=== PATIENT | female | born 1965 | race African-American/Black ===

== ENCOUNTER 2020-04-21 13:24 | Observation (INO) | payer OTHER ==
--- NOTE | 2020-04-21 13:52 | RAD ---
EXAM: Single view of the chest HISTORY: Chest pain COMPARISON: None FINDINGS: Single view of the chest shows a normal sized cardiomediastinal silhouette. There is no lauren dence of consolidation, mass, or pleural effusion. Degenerative changes are seen in the spine. IMPRESSION: No evidence of acute cardiopulmonary disease
[2020-04-21 15:28] LABS: Hemoglobin 16.9 g/dL (12.0-16.0); Mean Corpuscular HGB CONC 29.6 g/dL (32.0-36.0); Mean Corpuscular Hemoglobin 25.1 pg (27.0-31.0); Mean Platelet Volume 8.4 fL (7.4-10.4); Platelet Count 288 thou/uL (130-400); RBC Distribution Width 24.2 % (11.5-14.5); Red Blood Cell (RBC) Count 6.73 mill/uL (4.20-5.40)
[2020-04-21 15:47] LABS: Anisocytosis MODERATE=16-30 cells (100X) (0-5/hpf); Band 10 % (5-11); Hypochromia SLIGHT = 6-15 cells (100X) (0-5/hpf); Lymphocytes 14 % (21-51); MDiff Complete? YES; Monocytes 7 % (0-10); Neutrophil 55 % (42-75); Nucleated RBC 1 % (0); Platelet Morphology Comment Appears Adequate; Polychromasia MODERATE = 3-4 cells (100X) (0-2/hpf); Reactive Lymphocytes 14 % (0-10); Target Cells MODERATE= 6-15 cells (100X) (0-1/hpf); Tear Drops SLIGHT = 2-5 cells (100X) (0-1/hpf); White Blood Cell (WBC) Count 9.7 thou/uL (4.8-10.8)
[2020-04-21 15:53] LABS: ALT (SGPT) 13 U/L (8-55); AST (SGOT) 21 U/L (5-34); Albumin 4.2 g/dL (3.5-5.0); Alkaline Phosphatase 74 U/L (40-110); Anion Gap 14 mmol/L (10-20); BUN (Urea Nitrogen) 17 mg/dL (9.8-20.1); Bilirubin, Total 0.6 mg/dL (0.2-1.2); Calc. Creatinine Clearance 0 mL/min (70-130); Calcium 10.1 mg/dL (7.8-10.44); Carbon Dioxide 26 mmol/L (22-29); Chloride 101 mmol/L (98-107); Estimated GFR-MDRD 62; Globulin 3.7 g/dL (2.4-3.5); Glucose 90 mg/dL (70-105); Potassium 3.7 mmol/L (3.5-5.1); Protein, Total 7.9 g/dL (6.0-8.3); Sodium 137 mmol/L (136-145)
[2020-04-21] MEDS ORDERED: Aspirin Chewable 81 MG TAB ONE (17:28)
[2020-04-21] MEDS ORDERED: Nitroglycerin 0.4 MG TAB (25 Tab Bottle) PO PRN (21:29)
--- NOTE | 2020-04-21 21:50 | PDOC.HHP ---
Hospitalist HPI - History of Present Illness Chest heaviness and headache History of Present Illness: Patient presents to the ED today due to concerns over heaviness in her chest that she has felt intermittently since yesterday. She was resting when it started and she states she has issues with indigestion due to GERD but was unable to differentiate if the pain was due to that or heart related which prompted her to seek medical attention today as it has persisted on and off throughout the day. She denies any associated diaphoresis, or shortness of breath but has noted dyspnea on exertion which she has had for a long time but has significantly worsened in the last 3 weeks. Denies any cough or hemoptysis. Denies any abdominal pain, n/v. Denies any trauma, injury or heavy lifting. Complains of right hand pain which she has had for over a year. ED COURSE: EKG done in the ED showed a NSR, HR 71. No ST changes or T wave abnormalities. Initial troponin negative. CXR negative. Given aspirin 243 mg PO x 1 (she takes 81 mg Aspirin daily). BP initially elevated at 195/105, improved to 153/100. PAST MEDICAL HISTORY: 1. Prediabetic. 2. Hyperlipidemia. 3. Obesity. 4. Hypertension. 5. GERD. 6. Depression. PAST SURGICAL HISTORY: 1. x 4. 2. Bladder polyp removed. 3. Partial hysterectomy. 4. Cholecystectomy. 5. Colon polyp removed. SOCIAL HISTORY: Patient drinks socially, Patient denies drug use, Patient has no smoking history. FAMILY HISTORY: Noncontributory. ALLERGIES: Lisinopril. CURRENT MEDICATIONS: Pantoprazole: Strength - 40 mg PO daily. Carvedilol: Strength - 6.25 mg PO daily. BuPROPion HCl: Strength - 150 mg PO daily. Aspirin: Strength - 81 mg PO daily. Losartan-hydrochlorothiazide: Strength - 100 mg-25 mg, PO daily. HydrALAZINE: Strength - 50 mg PO daily. Colace: Strength - 50 mg PO daily. Fish Oil capsule PO daily. CloNIDine HCl: Strength - 0.1 mg PO. CloNIDine: Strength - 0.1 mg/24 hour : TRANSDERMAL - Exam General Appearance: NAD, awake alert Eye: PERRL, anicteric sclera ENT: normocephalic atraumatic, no oropharyngeal lesions Neck: supple, symmetric, no lymphadenopathy Heart: RRR, no murmur, no gallops, no rubs, normal peripheral pulses Heart - other findings: central chest wall discomfort on palpation Respiratory: CTAB, no wheezes, no rales, no ronchi, normal chest expansion Gastrointestinal: soft, non-tender, non-distended, normal bowel sounds, no guarding, no rigidity Extremities: no edema Skin: normal turgor, no lesions, no rashes Neurological: cranial nerve grossly intact, normal sensation to touch, no weakness Neurological - other findings: right hand discomfort over thenar eminence Musculoskeletal: normal tone, normal strength, no muscle wasting Psychiatric: normal affect, normal behavior, A&O x 3 Hospitalist Results - Labs Result Diagrams: 04/21/20 15:14 04/21/20 15:14 Lab results: WBC 9.7 thou/uL (4.8-10.8) 04/21/20 15:14 Hgb 16.9 g/dL (12.0-16.0) H 04/21/20 15:14 Hct 57.2 % (36.0-47.0) H 04/21/20 15:14 MCV 85.0 fL (78.0-98.0) 04/21/20 15:14 Plt Count 288 thou/uL (130-400) 04/21/20 15:14 Band Neuts % (Manual) 10 % (5-11) 04/21/20 15:14 Sodium 137 mmol/L (136-145) 04/21/20 15:14 Potassium 3.7 mmol/L (3.5-5.1) 04/21/20 15:14 Chloride 101 mmol/L (98-107) 04/21/20 15:14 Carbon Dioxide 26 mmol/L (22-29) 04/21/20 15:14 BUN 17 mg/dL (9.8-20.1) 04/21/20 15:14 Creatinine 1.11 mg/dL (0.6-1.1) H 04/21/20 15:14 Glucose 90 mg/dL (70-105) 04/21/20 15:14 Calcium 10.1 mg/dL (7.8-10.44) 04/21/20 15:14 Total Bilirubin 0.6 mg/dL (0.2-1.2) 04/21/20 15:14 AST 21 U/L (5-34) 04/21/20 15:14 ALT 13 U/L (8-55) 04/21/20 15:14 Alkaline Phosphatase 74 U/L (40-110) 04/21/20 15:14 Troponin I 0.023 ng/mL (< 0.028) 04/21/20 15:14 Serum Total Protein 7.9 g/dL (6.0-8.3) 04/21/20 15:14 Albumin 4.2 g/dL (3.5-5.0) 04/21/20 15:14 Hospitalist H&P A/P - Problem (1) Chest heaviness Code(s): R07.89 - OTHER CHEST PAIN Status: Acute (2) Dyspnea on exertion Code(s): R06.00 - DYSPNEA, UNSPECIFIED Status: Acute (3) Hypertensive urgency Code(s): I16.0 - HYPERTENSIVE URGENCY Status: Acute (4) Essential hypertension Code(s): I10 - ESSENTIAL (PRIMARY) HYPERTENSION Status: Chronic (5) Hyperlipidemia Code(s): E78.5 - HYPERLIPIDEMIA, UNSPECIFIED Status: Chronic (6) GERD (gastroesophageal reflux disease) Code(s): K21.9 - GASTRO-ESOPHAGEAL REFLUX DISEASE WITHOUT ESOPHAGITIS Status: Chronic (7) History of prediabetes Code(s): Z87.898 - PERSONAL HISTORY OF OTHER SPECIFIED CONDITIONS Status: Chronic (8) Obesity Code(s): E66.9 - OBESITY, UNSPECIFIED Status: Chronic - Plan Plan: Cardiac monitoring. Continue to trend troponins. Monitor BP. PRN antihypertensives ordered. Echo ordered. Stress test in AM. Lipid panel with AM labs. Check TSH, BNP, Mg+, D-Dimer and Hgb A1C (hx prediabetes). NPO after midnight. Resume pantoprazole which she takes at home. DVT Prophylaxis with mechanical SCDs. CODE STATUS FULL Surrogate decision makers: Her son Homer Hewitt.
[2020-04-21 22:13] LABS: Hemoglobin A1c 6.5 % (4.0-6.0)
[2020-04-21 23:40] VITALS: BMI 44.5
[2020-04-22 04:51] LABS: Cardiac Risk 5.3 (Less than 4.5)
[2020-04-22] MEDS ORDERED: hydrALAZINE 20 MG/ML VIAL SLOW IVP PRN (05:37)
[2020-04-22] MEDS ORDERED: Aspirin 325 mg Enteric Coated Tablet PO SCH (09:00)
--- NOTE | 2020-04-22 11:54 | NM ---
Radionucleotide stress only myocardial perfusion scan with CT attenuation correction and SPECT imagin g Left ventricular wall motion evaluation and ejection fraction HISTORY: Chest pain. FINDINGS: Adenosine protocol. There is homogeneous uptake of radiotracer throughout the left ventricu lar myocardium. No focal perfusion defect. QGS analysis of gated SPECT images shows no focal wall motion abnormalities. Ejection fraction calcul ated at greater than 81%. IMPRESSION : No evidence of ischemia. Normal LVEF.
[2020-04-22 14:28] LABS: SARS-CoV-2 MS2 Positive; SARS-CoV-2 N Gene Negative; SARS-CoV-2 S Gene Negative; SARS-CoV-2 by NAA Not Detected (NotDetected); SARS-CoV-2 orf1ab Negative
[2020-04-22 16:23] VITALS: BP 146/88; TEMP 98.2
--- NOTE | 2020-04-23 12:58 | DIS ---
DATE OF ADMISSION: 04/21/2020 DATE OF DISCHARGE: 04/22/2020 DISCHARGE DIAGNOSES: 1. Chest pain, likely musculoskeletal. 2. Dyspnea on exertion. 3. Hypertensive urgency. 4. Essential hypertension. 5. Hyperlipidemia. 6. Gastroesophageal reflux disease. 7. History of prediabetes. 8. Obesity. 9. Polycythemia vera. HISTORY OF PRESENT ILLNESS: The patient is a 55-year-old female, who presented to the emergency department reporting some chest discomfort in the parasternal area. This was described as generally intermittent. Her labs were notable for normal white count, hemoglobin of 16.9 with diffuse differential. Troponin was negative. EKG was nonischemic. Her GFR was 62, consistent with prior readings historically, consistent with chronic kidney disease stage 3. HOSPITAL COURSE: The patient was placed on observation on telemetry. She had serial cardiac isoenzymes, which were unremarkable. She underwent a nuclear medicine stress test, which revealed normal ejection fraction. No evidence of ischemia. Her echocardiogram revealed an EF of 55% to 60%, possibility of diastolic dysfunction. The patient's followup exam revealed tenderness in the parasternal area bilaterally. I discussed the situation with her at length. She does have a history of polycythemia vera and has seen a specialist for this. Right now, her treatment plan consist of intermittent phlebotomy when her hemoglobin goes above 18. I had a long discussion with her explaining the underlying diagnosis and the concerns for it, although I think it is completely unrelated to her more likely musculoskeletal chest pain that she is experiencing. PHYSICAL EXAMINATION: VITAL SIGNS: At the time of discharge, the patient's temperature is 98.2, pulse 56, respirations 14, O2 saturation 96% on room air, and blood pressure 146/88. GENERAL: She was awake and alert. HEART: Regular. LUNGS: Clear. ABDOMEN: Benign. EXTREMITIES: No edema. DISPOSITION: The patient is discharged to home. She is to continue her usual diet and activity level and will remain on her same medication regimen. She should follow up with her PCP within 1 week and she can return to the hospital at anytime she has the need to do so. Job ID: [id number]
== END 2020-04-22 17:20 | disposition home or self-care (01) ==
LOC: ERS 13:24 → ERHOLD 17:56 → 2NO 20:38
PROVIDERS: ADMIT Internal Medicine; ATTEND Internal Medicine
DX: R07.89 Other chest pain (principal); R06.00 Dyspnea, unspecified; I16.0 Hypertensive urgency; I10 Essential (primary) hypertension; E78.5 Hyperlipidemia, unspecified; K21.9 Gastro-esophageal reflux disease without esophagitis; R73.03 Prediabetes; D45 Polycythemia vera; F32.9 Major depressive disorder, single episode, unspecified; E66.9 Obesity, unspecified; Z79.82 Long term (current) use of aspirin; Z79.899 Other long term (current) drug therapy; Z88.8 Allergy status to other drugs, medicaments and biological substances; Z68.41 Body mass index [BMI] 40.0-44.9, adult
CPT/HCPCS: 36415; 71045; 78452; 80053; 80061; 83036; 83735; 83880; 84443; 84484; 85025; 85379; 87635; 93005; 93017; 93306; 94760; 96374; A9500; G0378; J0153; J0360; U0003

== ENCOUNTER 2021-02-02 08:13 | Day surgery (SDC) | payer OTHER ==
[2021-01-29 13:51] VITALS: BMI 40.2
[2021-02-02 08:58] LABS: INR-International Normal Ratio 1.1; PTT 28.5 sec (22.9-36.1)
[2021-02-02 10:32] VITALS: BP 154/87; TEMP 99.2
== END 2021-02-02 12:20 | disposition home or self-care (01) ==
LOC: CT 08:13
PROVIDERS: ATTEND Internal Medicine Hematology & Oncology
PROC: 079T3ZX Drainage of Bone Marrow, Percutaneous Approach, Diagnostic (ICD-10-PCS; principal; 2021-02-02)
PROC: 07DR3ZX Extraction of Iliac Bone Marrow, Percutaneous Approach, Diagnostic (ICD-10-PCS; principal; 2021-02-02)
DX: D45 Polycythemia vera (principal); R73.03 Prediabetes; I10 Essential (primary) hypertension; M10.9 Gout, unspecified; G47.33 Obstructive sleep apnea (adult) (pediatric); K21.9 Gastro-esophageal reflux disease without esophagitis; E66.01 Morbid (severe) obesity due to excess calories; Z68.41 Body mass index [BMI] 40.0-44.9, adult; Z79.82 Long term (current) use of aspirin; Z79.899 Other long term (current) drug therapy; Z88.8 Allergy status to other drugs, medicaments and biological substances
CPT/HCPCS: 20225; 77002; 85097; 85610; 85730; 88184; 88237; 88305; 88311; 88313; 88341; 88342

== ENCOUNTER 2021-05-28 09:40 | Outpatient (CLI) | payer OTHER | END 2021-05-28 09:41 | disposition home or self-care (01) | LOC: BICMAMMO 09:40 | PROVIDERS: ATTEND Family Medicine | DX: Z12.31 Encounter for screening mammogram for malignant neoplasm of breast (principal); Z80.3 Family history of malignant neoplasm of breast; Z85.89 Personal history of malignant neoplasm of other organs and systems | CPT/HCPCS: 77063; 77067 ==

== ENCOUNTER 2021-06-05 14:26 | Emergency (ER) | payer OTHER ==
[2021-06-05 22:17] LABS: Anion Gap 13 mmol/L (10-20); BUN (Urea Nitrogen) 9 mg/dL (9.8-20.1); Bilirubin, Total 0.5 mg/dL (0.2-1.2); Calc. Creatinine Clearance 0 mL/min (70-130); Calcium 10.2 mg/dL (7.8-10.44); Carbon Dioxide 27 mmol/L (22-29); Chloride 104 mmol/L (98-107); Glucose 111 mg/dL (70-105); Potassium 4.2 mmol/L (3.5-5.1); Protein, Total 7.4 g/dL (6.0-8.3); Sodium 140 mmol/L (136-145)
[2021-06-05 22:18] LABS: ALT (SGPT) 14 U/L (8-55); AST (SGOT) 25 U/L (5-34); Albumin 4.3 g/dL (3.5-5.0); Alkaline Phosphatase 95 U/L (40-110); Globulin 3.1 g/dL (2.4-3.5)
[2021-06-05 22:21] LABS: Hemoglobin 13.3 g/dL (12.0-16.0); Mean Corpuscular Hemoglobin 17.8 pg (27.0-31.0); Mean Corpuscular Volume 65.1 fL (78.0-98.0); Red Blood Cell (RBC) Count 7.45 mill/uL (4.20-5.40); White Blood Cell (WBC) Count 14.5 thou/uL (4.8-10.8)
[2021-06-05 22:22] LABS: %Eosinophils 0.4 % (0.0-10.0); %Monocytes 7.4 % (0.0-10.0); %Neutrophils 75.1 % (42.0-75.0); Mean Corpuscular HGB CONC 27.4 g/dL (32.0-36.0); Mean Platelet Volume 7.6 fL (7.4-10.4); Platelet Count 362 thou/uL (130-400); RBC Distribution Width 26.2 % (11.5-14.5)
[2021-06-05 22:23] LABS: #Neutrophils 10.9 thou/uL (1.40-6.50); %Basophils 0.1 % (0.0-1.0)
[2021-06-05 22:24] LABS: #Eosinphils 0.1 thou/uL (0.0-0.7); #Lymphocytes 2.5 thou/uL (1.20-3.40); #Monocytes 1.1 thou/uL (0.11-0.59); MDiff Complete? YES
[2021-06-05 22:25] LABS: Hypochromia MODERATE=16-30 cells (100X) (0-5/hpf); Poikilocytosis SLIGHT = 6-15 cells (100X) (0-5/hpf); Polychromasia MODERATE = 3-4 cells (100X) (0-2/hpf); Target Cells SLIGHT = 2-5 cells (100X) (0-1/hpf)
[2021-06-05 22:26] LABS: Anisocytosis MODERATE=16-30 cells (100X) (0-5/hpf); Microcytosis SLIGHT = 6-15 cells (100X) (0-5/hpf); Reflex for Review?? YES
[2021-06-05 22:27] LABS: Large Platelets SLIGHT; Platelet Morphology Comment Appears Adequate; Spherocytes SLIGHT = 1-5 cells (100X) (None Seen)
[2021-06-05 22:28] LABS: Ovalocytes SLIGHT = 2-5 cells (100X) (0-1/hpf); Tear Drops SLIGHT = 2-5 cells (100X) (0-1/hpf)
[2021-06-05 22:42] LABS: Clarity Clear (Clear); Specific Gravity, Urine 1.004 (1.002-1.036)
[2021-06-05 22:43] LABS: Bacteria/HPF None Seen HPF (None Seen); Bilirubin Negative (Negative); Blood, Urine Negative (Negative); Glucose, Urine (Dipstick) Negative (Negative); Ketone, Urine Negative (Negative); Leukocyte Negative Leu/uL (Negative); Nitrite Negative (Negative); Protein, Urine (Dipstick) Negative (Neg-Trace); RBC/HPF 0-3 HPF (0-3); Urobilinogen 0.2 mg/dL (Less than 2)
== END 2021-06-06 01:05 | disposition home or self-care (01) ==
LOC: ERS 14:26
DX: R20.0 Anesthesia of skin (principal); E78.5 Hyperlipidemia, unspecified; I10 Essential (primary) hypertension; Z79.82 Long term (current) use of aspirin; Z79.899 Other long term (current) drug therapy
CPT/HCPCS: 80053; 81001; 85025; 85060; 93005; 99283

== ENCOUNTER 2021-06-22 13:03 | Outpatient (CLI) | payer OTHER | END 2021-06-22 13:04 | disposition home or self-care (01) | LOC: BICULT 13:03 | PROVIDERS: ATTEND Internal Medicine Nephrology | DX: N18.30 Chronic kidney disease, stage 3 unspecified (principal); N20.0 Calculus of kidney | CPT/HCPCS: 76770 ==

== ENCOUNTER 2021-06-24 08:29 | Outpatient (CLI) | payer OTHER ==
[2021-06-24] MEDS ORDERED: Magnevist 469MG/ML 20 ML VIAL ONE (11:22)
== END 2021-06-24 08:30 | disposition home or self-care (01) ==
LOC: BICMRI 08:29
PROVIDERS: ATTEND Family Medicine
DX: R20.2 Paresthesia of skin (principal)
CPT/HCPCS: 70553; A9579

== ENCOUNTER 2022-05-31 10:53 | Outpatient (CLI) | payer BC | END 2022-05-31 10:54 | disposition home or self-care (01) | LOC: BICMAMMO 10:53 | PROVIDERS: ATTEND Family Medicine | DX: Z12.31 Encounter for screening mammogram for malignant neoplasm of breast (principal); Z80.3 Family history of malignant neoplasm of breast; Z85.89 Personal history of malignant neoplasm of other organs and systems | CPT/HCPCS: 77063; 77067 ==

== ENCOUNTER 2023-06-22 11:38 | Day surgery (SDC) | payer OTHER ==
[2023-06-17 15:34] VITALS: BMI 37.5
[2023-06-22] MEDS ORDERED: Bupivacaine 0.25% HCL 30 ML VIAL ONE (12:17)
[2023-06-22] MEDS ORDERED: Lidocaine 1% (PF) 30 ML VIAL ONE (12:17)
[2023-06-22] MEDS ORDERED: fentaNYL 50 mcg/mL 1 mL Vial ONE (12:22)
[2023-06-22] MEDS ORDERED: Midazolam HCl 2 mg/2 ml Vial ONE (12:22)
[2023-06-22 12:31] LABS: #Basophils 0.1 thou/uL (0.0-0.2); #Monocytes 0.5 thou/uL (0.11-0.59); #Neutrophils 4.2 thou/uL (1.40-6.50); %Basophils 0.8 % (0.0-1.0); %Eosinophils 0.5 % (0.0-10.0); %Lymphocytes 22.2 % (21.0-51.0); %Monocytes 7.6 % (0.0-10.0); %Neutrophils 68.6 % (42.0-75.0); Hemoglobin 13.9 g/dL (12.0-16.0); Mean Corpuscular Hemoglobin 24.7 pg (27.0-31.0); Mean Corpuscular Volume 85.3 fl (78.0-98.0); Platelet Count 111 10x3/uL (130-400); RBC Distribution Width 24.7 % (11.5-14.5); Red Blood Cell (RBC) Count 5.63 mill/uL (4.20-5.40); White Blood Cell (WBC) Count 6.1 10x3/uL (4.8-10.8)
[2023-06-22] MEDS ORDERED: CEFAZOLIN 2 GM VIAL ONE (12:42)
[2023-06-22] MEDS ORDERED: Sodium Chloride 0.9% 100 ML ONE (12:42)
[2023-06-22 12:54] LABS: Anion Gap 14 mmol/L (10-20); Anisocytosis MODERATE=16-30 cells HPF (0-5); BUN (Urea Nitrogen) 13 mg/dL (9.8-20.1); Calc. Creatinine Clearance 73 mL/min (70-130); Calcium 10.1 mg/dL (7.8-10.44); Carbon Dioxide 24 mmol/L (22-29); CellaVision Operator ID LAB.KB; Chloride 107 mmol/L (98-107); Estimated GFR 53; Glucose 88 mg/dL (70-105); Hypochromia SLIGHT = 6-15 cells HPF (0-5); Ovalocytes SLIGHT = 2-5 cells HPF (0-1); Platelet Adequacy Comment Platelets Decreased; Polychromasia SLIGHT = 2-3 cells HPF (0-2); Sodium 141 mmol/L (136-145); Target Cells SLIGHT = 2-5 cells HPF (0-1)
[2023-06-22] MEDS ORDERED: PROPOFOL 200 MG/20 ML VIAL ONE (12:59)
== END 2023-06-22 14:27 | disposition home or self-care (01) ==
LOC: SDC 11:38
PROVIDERS: ATTEND Surgery Surgery of the Hand
PROC: 01N50ZZ Release Median Nerve, Open Approach (ICD-10-PCS; principal; 2023-06-22)
DX: G56.01 Carpal tunnel syndrome, right upper limb (principal); Z79.899 Other long term (current) drug therapy; Z88.8 Allergy status to other drugs, medicaments and biological substances
CPT/HCPCS: 80048; 85025; 93005; 93010; J2001; J2250; J2704; J3010; J3490; S0020

== ENCOUNTER 2024-03-29 13:10 | Emergency (ER) | payer OTHER ==
[2024-03-29] MEDS ORDERED: Ondansetron PF 4 MG/2 ML Vial ONE (13:32)
[2024-03-29] MEDS ORDERED: Ketorolac Tromethamine 30 MG (1 mL) VIAL ONE (13:32)
[2024-03-29] MEDS ORDERED: Morphine 4 MG/ML VIAL ONE (13:32)
[2024-03-29 14:14] LABS: Troponin I Less than 0.010 ng/mL (< 0.028)
== END 2024-03-29 16:44 | disposition home or self-care (01) ==
LOC: ERS 13:10
DX: K80.20 Calculus of gallbladder without cholecystitis without obstruction (principal); R10.11 Right upper quadrant pain; I12.9 Hypertensive chronic kidney disease with stage 1 through stage 4 chronic kidney disease, or unspecified chronic kidney disease; N18.30 Chronic kidney disease, stage 3 unspecified
CPT/HCPCS: 71045; 76705; 84484; 93005; 96374; 96375; J1885; J2270; J2405